=== PATIENT | male | born 1960 | race Caucasian/White ===

== ENCOUNTER 2018-12-10 08:40 | Observation (INO) | payer BC, OTHER ==
[2018-12-10 09:02] LABS: #Eosinphils 0.1 thou/uL (0.0-0.7); #Lymphocytes 1.4 thou/uL (1.20-3.40); #Monocytes 0.9 thou/uL (0.11-0.59); %Basophils 0.5 % (0.0-1.0); %Eosinophils 0.8 % (0.0-10.0); %Lymphocytes 13.3 % (21.0-51.0); %Monocytes 8.6 % (0.0-10.0); %Neutrophils 76.8 % (42.0-75.0); Hemoglobin 13.2 g/dL (14.0-18.0); Mean Corpuscular HGB CONC 33.3 g/dL (32.0-36.0); Mean Corpuscular Hemoglobin 28.1 pg (27.0-31.0); Mean Corpuscular Volume 84.4 fL (78.0-98.0); Platelet Count 242 thou/uL (130-400); RBC Distribution Width 13.2 % (11.5-14.5); Red Blood Cell (RBC) Count 4.71 mill/uL (4.70-6.10); White Blood Cell (WBC) Count 10.4 thou/uL (4.8-10.8)
[2018-12-10 09:30] LABS: ALT (SGPT) 22 U/L (8-55); AST (SGOT) 24 U/L (5-34); Albumin 4.4 g/dL (3.5-5.0); Alkaline Phosphatase 59 U/L (40-150); Anion Gap 14 mmol/L (10-20); BUN (Urea Nitrogen) 13 mg/dL (8.4-25.7); Bilirubin, Total 0.3 mg/dL (0.2-1.2); Calc. Creatinine Clearance 0 mL/min (70-130); Calcium 9.8 mg/dL (7.8-10.44); Carbon Dioxide 27 mmol/L (22-29); Chloride 100 mmol/L (98-107); Estimated GFR-MDRD 68; Glucose 159 mg/dL (70-105); Potassium 4.2 mmol/L (3.5-5.1); Protein, Total 7.4 g/dL (6.0-8.3); Sodium 137 mmol/L (136-145)
[2018-12-10] MEDS ORDERED: diphenhydrAMINE 50 MG/ML VIAL ONE (10:23)
[2018-12-10] MEDS ORDERED: Famotidine/PF 20 mg/2ml Vial ONE (10:23)
[2018-12-10] MEDS ORDERED: methylPREDNISolone Sod Succ/PF 125 MG/2 ML VIAL ONE (10:23)
[2018-12-10] MEDS ORDERED: ISOVUE-370 76%-LOCM 1 ML ONE (10:26)
[2018-12-10] MEDS ORDERED: Piperacillin/Tazobactam 4.5 GM VIAL ONE (10:37)
--- NOTE | 2018-12-10 11:43 | CT ---
CT ABDOMEN AND PELVIS WITH IV CONTRAST: Date: 12/10/18 HISTORY: Abdominal pain. FINDINGS: The lung bases are clear. No calcified gallstones are seen. There is fatty infiltration of the liver without focal mass or intrahepatic ductal dilatation. The spleen, pancreas, adrenal glands, and kidne ys are normal. No free air, free fluid, or lymphadenopathy seen in the abdomen or pelvis. The small bowel loops are not abnormally dilated. A normal appearing appendix is seen. No abnormally loculated fluid collections are noted to suggest pulmonary embolism. The abdominal aorta is normal ca liber without aneurysm. There are degenerative changes in the spine. There is thickening of the skin of the lower anterior abdominal wall with mild inflammatory change in the subcutaneous fat. This may represent cellulitis. The prostate is enlarged. IMPRESSION: No evidence of abscess formation. POS: [facility]
[2018-12-10] MEDS ORDERED: Lidocaine 1% (PF) 30 ML VIAL ONE (12:29)
[2018-12-10] MEDS ORDERED: Morphine 4 MG/ML VIAL ONE (12:29)
[2018-12-10 16:19] VITALS: BMI 38.8
[2018-12-10] MEDS ORDERED: Morphine 2 MG/ML SYRINGE SLOW IVP PRN (18:58)
[2018-12-10] MEDS ORDERED: Guaifenesin DM 100-10/5 ML UDCUP PO PRN (18:58)
[2018-12-10] MEDS ORDERED: Dextrose 5% in Water 1,000 ML IV PRN (18:58)
[2018-12-10] MEDS ORDERED: HumaLOG 300 UNITS/3 ML VIAL SC PRN (18:58)
[2018-12-10] MEDS ORDERED: Acetaminophen 325 MG TAB PO PRN (18:58)
[2018-12-10] MEDS ORDERED: Dextrose 50% Abboject 50 ML SYRINGE SLOW IVP PRN (18:58)
[2018-12-10] MEDS ORDERED: Senokot S 8.6-50 MG TAB PO PRN (18:58)
[2018-12-10] MEDS ORDERED: Bisacodyl 10 MG SUPP PR PRN (18:58)
[2018-12-10] MEDS ORDERED: Vancomycin HCl 1 GM in Premix Bag 1 BAG IVPB SCH (21:00)
[2018-12-10] MEDS: Piperacillin/Tazobactam 3.375 GM in Sodium Chloride 0.9% 100 ML IVPB SCH (21:25)
[2018-12-10] MEDS: Escitalopram Oxalate 10 mg Tablet PO SCH (21:26)
[2018-12-10] MEDS: Atorvastatin Calcium 20 MG TAB PO SCH (21:26)
[2018-12-10] MEDS: Ibuprofen 200 MG TAB PO SCH (21:26)
--- NOTE | 2018-12-10 21:33 | HP ---
REASON FOR ADMISSION: Abdominal wall abscess with cellulitis. HISTORY OF PRESENTING ILLNESS: The patient gives history of having noticed a pimple on last Thursday. This was in the right lower quadrant area. This progressively got worse and became hot to touch and the patient finally went to see his primary care physician, Dr. Dave Amanda on . He, in fact, saw his nurse practitioner, Ms. Silvestre. The patient was given a choice whether to go to the emergency room or try oral antibiotics. He was given a dose of Rocephin and was given Bactrim oral. He followed up this morning with his nurse practitioner and was told that the abscess had become big and he needs to go to the emergency room. On arrival in the ER, he has had incision and drainage done of the abscess by ER physician. Subjective fever but has not measured it at home. No complaints of any other wounds. PAST MEDICAL AND SURGICAL HISTORY: Diabetes mellitus type 2, hypertension, dyslipidemia, gout, left testicle repair, tonsillectomy, depression. CURRENT MEDICATIONS: The patient is on: 1. Metformin 500 mg p.o. daily. 2. Lexapro 10 mg p.o. daily. 3. Livalo 4 mg p.o. daily. 4. Losartan 50 mg p.o. daily. 5. Omeprazole 40 mg daily. 6. Allopurinol 100 mg p.o. daily. ALLERGIES: TO BEE POLLEN AND OMNIPAQUE. PERSONAL HISTORY: Does not abuse alcohol or drugs. No history of smoking. FAMILY HISTORY: Mother of renal failure and its complications. She was on dialysis. She at the age of 63 years. Father is living and is 82 years old. CODE STATUS: Full. Power of litigation attorney is his . REVIEW OF SYSTEMS: CONSTITUTIONAL: Negative for weight loss or gain, ability to conduct usual activities. SKIN: Negative for rash, itching. EYES: Negative for double vision, pain. ENT/MOUTH: Negative for nose bleeding, neck stiffness, pain, tenderness. CARDIOVASCULAR: Negative for palpitations, dyspnea on exertion, orthopnea. RESPIRATORY: Negative for shortness of breath, wheezing, cough, hemoptysis, fever or night sweats. GASTROINTESTINAL: Negative for poor appetite, abdominal pain, heartburn, nausea , vomiting, constipation, or diarrhea. GENITOURINARY: Negative for urgency, frequency, dysuria, nocturia. MUSCULOSKELETAL: Negative for pain, swelling. NEUROLOGIC/PSYCHIATRIC: Negative for anxiety, depression. ALLERGY/IMMUNOLOGIC: Negative for skin rash, bleeding tendency. PHYSICAL EXAMINATION: GENERAL: The patient is a 58-year-old male, who is currently not in any acute distress. VITAL SIGNS: Blood pressure 130/86, pulse 98 per minute, respiratory rate 18 per minute, temperature 98.3 degrees Fahrenheit, and saturating 96% on room air. NECK: Supple. No elevated JVD. HEENT: Eyes; extraocular muscles intact. Pupils reacting to light. Oral cavity, mucous membranes are moist. No exudates or congestion. CARDIOVASCULAR: S1, S2 heard. Regular rhythm. RESPIRATORY: Air entry, 2+ bilateral. No rales or rhonchi. ABDOMEN: Soft. There is an abscess in the right lower quadrant, which has been incised and drained by ER physician. He has induration surrounding the abscess. He also has erythema all across his lower quadrants from right lower quadrant extending down to the left quadrants up until the end of suprapubic area. Bowel sounds are heard. No rigidity or guarding. EXTREMITIES: No peripheral edema or calf tenderness. VASCULAR SYSTEM: Peripheral pulses 1+ bilateral. No ischemic ulcerations or gangrene. CENTRAL NERVOUS SYSTEM: No gross focal deficits noted. The patient is alert, awake, and oriented well. PSYCHIATRIC: The patient's mood is euthymic. No hallucinations or delusions. LABORATORY DATA: CT of the abdomen and pelvis with IV contrast done shows thickening of the skin in the lower anterior abdominal wall with mild inflammatory change in the subcutaneous fat representing cellulitis. Prostate is enlarged. No evidence of abscess formation is seen. White count of 10, H and H 13 and 39, platelet count 242, with 76% neutrophils. Electrolytes stable. BUN 13, creatinine 1.1, serum glucose 159. CLINICAL IMPRESSION AND PLAN: The patient will be under observation on med/surg floor for right lower quadrant abscess which has been incised and drained by ER physician. He was given a dose of Zosyn and vancomycin and will continue the same. Hopefully, he has been cultured in the emergency room and we will follow up on that. He will be on Motrin 400 mg three times daily along with morphine p.r.n. for pain. We will continue his allopurinol, Lipitor, Lexapro, metformin, Cozaar as before at home doses. Job ID: [id number] [facility]
[2018-12-10] MEDS: Vancomycin HCl 1.75 GM in Sodium Chloride 0.9% 500 ML IVPB SCH (23:43)
[2018-12-11] MEDS: Piperacillin/Tazobactam 3.375 GM in Sodium Chloride 0.9% 100 ML IVPB SCH ×3 (05:13→22:09)
[2018-12-11 05:43] LABS: #Lymphocytes 1.5 thou/uL (1.20-3.40); #Monocytes 0.9 thou/uL (0.11-0.59); #Neutrophils 9.4 thou/uL (1.40-6.50); %Lymphocytes 12.3 % (21.0-51.0); %Monocytes 7.8 % (0.0-10.0); %Neutrophils 79.8 % (42.0-75.0); Hemoglobin 12.5 g/dL (14.0-18.0); Mean Corpuscular Hemoglobin 28.3 pg (27.0-31.0); Mean Corpuscular Volume 85.9 fL (78.0-98.0); Platelet Count 239 thou/uL (130-400); RBC Distribution Width 13.3 % (11.5-14.5); White Blood Cell (WBC) Count 11.8 thou/uL (4.8-10.8)
[2018-12-11 06:13] LABS: ALT (SGPT) 17 U/L (8-55); AST (SGOT) 18 U/L (5-34); Albumin 3.9 g/dL (3.5-5.0); Alkaline Phosphatase 53 U/L (40-150); Anion Gap 12 mmol/L (10-20); BUN (Urea Nitrogen) 17 mg/dL (8.4-25.7); Bilirubin, Total 0.2 mg/dL (0.2-1.2); Calc. Creatinine Clearance 131 mL/min (70-130); Calcium 9.1 mg/dL (7.8-10.44); Carbon Dioxide 25 mmol/L (22-29); Chloride 103 mmol/L (98-107); Estimated GFR-MDRD 72; Globulin 2.8 g/dL (2.4-3.5); Glucose 259 mg/dL (70-105); Potassium 4.2 mmol/L (3.5-5.1); Protein, Total 6.7 g/dL (6.0-8.3); Sodium 136 mmol/L (136-145)
[2018-12-11] MEDS: Ibuprofen 200 MG TAB PO SCH ×3 (09:25→21:27)
[2018-12-11] MEDS: metFORMIN 500 MG TAB PO SCH (09:25)
[2018-12-11] MEDS: Allopurinol 100 MG TAB PO SCH (09:25)
[2018-12-11] MEDS: Losartan 25 MG TAB PO SCH (09:26)
[2018-12-11] MEDS: Vancomycin HCl 1.75 GM in Sodium Chloride 0.9% 500 ML IVPB SCH ×2 (11:26→22:51)
--- NOTE | 2018-12-11 15:33 | PDOC.HOSPP ---
- Subjective Encounter Date: 12/11/18 Encounter Time: 07:40 Subjective: Pt seen for followup re: abdominal wall cellulitis. Says he feels better. - Objective Vital Signs & Weight: Vital Signs (12 hours) Temp Pulse Resp BP Pulse Ox 12/11/18 07:57 98.6 F 78 18 128/78 97 Weight Weight 263 lb I&O: 12/10/18 12/11/18 12/12/18 06:59 06:59 06:59 Intake Total 1999 Balance 1999 Result Diagrams: 12/11/18 05:26 12/11/18 05:26 Additional Labs: Accuchecks 12/11/18 12/11/18 12/10/18 12:29 05:57 21:33 POC Glucose 132 H 220 H 238 H Labs and MARs reviewed by me. Hospitalist ROS - Review of Systems Cardiovascular: denies: chest pain, palpitations, orthopnea, paroxysmal noc. dyspnea, edema, light headedness Gastrointestinal: denies: nausea, vomitting, abdominal pain, diarrhea, constipation, melena, hematochezia Skin: reports: rash - Medication Medications: Active Medications Generic Name Dose Route Start Last Admin Trade Name Freq PRN Reason Stop Dose Admin Allopurinol 100 mg 12/11/18 09:00 12/11/18 09:25 Zyloprim PO 100 mg DAILY IAM Administration Atorvastatin Calcium 20 mg 12/10/18 21:00 12/10/18 21:26 Lipitor PO 20 mg HS IAM Administration Escitalopram Oxalate 10 mg 12/10/18 21:00 12/10/18 21:26 Lexapro PO 10 mg HS IAM Administration Piperacillin Sod/Tazobactam 100 mls @ 200 mls/hr 12/10/18 22:00 12/11/18 14: 10 Sod 3.375 gm/ Sodium Chloride IVPB 100 mls Q8HR IAM Administration Vancomycin HCl 1.75 gm/ Sodium 500 mls @ 250 mls/hr 12/10/18 23:00 12/11/18 11:26 Chloride IVPB 500 mls 1100,2300 IAM Administration Ibuprofen 400 mg 12/10/18 21:00 12/11/18 15:10 Motrin PO 400 mg TID IAM Administration Losartan Potassium 50 mg 12/11/18 09:00 12/11/18 09:26 Cozaar PO 50 mg DAILY IAM Administration Metformin HCl 500 mg 12/11/18 08:00 12/11/18 09:25 Glucophage PO 500 mg QAM-WM IAM Administration Pantoprazole Sodium 40 mg 12/11/18 09:00 12/11/18 09:26 Protonix PO 40 mg DAILY IAM Administration - Exam General - other findings: Obese Eye: anicteric sclera ENT: moist mucosa Neck: supple, symmetric Heart: RRR, no rubs Respiratory: CTAB, no wheezes Gastrointestinal: soft, non-tender, normal bowel sounds Skin - other findings: Abdominal wall cellulitis+ Neurological: no weakness Psychiatric: normal affect, normal behavior Hosp A/P (1) Abdominal wall cellulitis Code(s): L03.311 - CELLULITIS OF ABDOMINAL WALL Status: Acute (2) DM2 (diabetes mellitus, type 2) Status: Chronic (3) Depression Code(s): F32.9 - MAJOR DEPRESSIVE DISORDER, SINGLE EPISODE, UNSPECIFIED Status : Chronic (4) Dyslipidemia Code(s): E78.5 - HYPERLIPIDEMIA, UNSPECIFIED Status: Chronic (5) HTN (hypertension) Code(s): I10 - ESSENTIAL (PRIMARY) HYPERTENSION Status: Chronic (6) Gout Code(s): M10.9 - GOUT, UNSPECIFIED Status: Chronic - Plan continue antibiotics, out of bed/ambulate Continue IV vancomycin and IV Zosyn. Pt failed outpatient antibiotic therapy prior to admission. Continue acccuchecks and insulin sliding scale. Continue Livalo for dyslipidemia. Depression mild, stable, continue Lexapro. Gout stable, continue allopurinol. HTN controlled.
[2018-12-11] MEDS: Escitalopram Oxalate 10 mg Tablet PO SCH (21:27)
[2018-12-11] MEDS: Atorvastatin Calcium 20 MG TAB PO SCH (21:28)
[2018-12-12] MEDS: Piperacillin/Tazobactam 3.375 GM in Sodium Chloride 0.9% 100 ML IVPB SCH ×2 (02:59→10:50)
[2018-12-12] MEDS: metFORMIN 500 MG TAB PO SCH (08:23)
[2018-12-12] MEDS: Losartan 25 MG TAB PO SCH (08:23)
[2018-12-12] MEDS: Allopurinol 100 MG TAB PO SCH (08:23)
[2018-12-12] MEDS: Ibuprofen 200 MG TAB PO SCH (08:24)
[2018-12-12 10:54] LABS: Vancomycin, Trough 18.8 ug/mL
[2018-12-12] MEDS: Vancomycin HCl 1.75 GM in Sodium Chloride 0.9% 500 ML IVPB SCH (11:10)
[2018-12-12] MEDS ORDERED: Sulfameth/Trimethoprim DS 800-160mg TAB PO SCH ×2 (11:45→21:00)
[2018-12-12 11:46] VITALS: BP 143/86; TEMP 98.3
[2018-12-12 11:59] LABS: #Basophils 0.1 thou/uL (0.0-0.2); #Eosinphils 0.2 thou/uL (0.0-0.7); #Lymphocytes 1.1 thou/uL (1.20-3.40); #Monocytes 0.6 thou/uL (0.11-0.59); #Neutrophils 4.1 thou/uL (1.40-6.50); %Eosinophils 3.4 % (0.0-10.0); %Monocytes 9.8 % (0.0-10.0); %Neutrophils 67.8 % (42.0-75.0); Hemoglobin 12.7 g/dL (14.0-18.0); Mean Corpuscular Hemoglobin 28.5 pg (27.0-31.0); Mean Corpuscular Volume 86.3 fL (78.0-98.0); Mean Platelet Volume 8.1 fL (7.4-10.4); Platelet Count 232 thou/uL (130-400); RBC Distribution Width 13.4 % (11.5-14.5); Red Blood Cell (RBC) Count 4.45 mill/uL (4.70-6.10)
[2018-12-12 12:00] LABS: Anion Gap 13 mmol/L (10-20); BUN (Urea Nitrogen) 15 mg/dL (8.4-25.7); Calc. Creatinine Clearance 160 mL/min (70-130); Calcium 9.2 mg/dL (7.8-10.44); Carbon Dioxide 25 mmol/L (22-29); Chloride 104 mmol/L (98-107); Estimated GFR-MDRD Greater than 90; Glucose 140 mg/dL (70-105); Sodium 138 mmol/L (136-145)
--- NOTE | 2018-12-12 14:10 | DIS ---
DATE OF ADMISSION: 12/10/2018 DATE OF DISCHARGE: 12/12/2018 PRIMARY CARE PROVIDER: Dr. Dave Amanda. DISCHARGE DIAGNOSIS: Abdominal wall cellulitis. CONDITION OF PATIENT ON THE DAY OF DISCHARGE: Stable. I assessed Mr. Gonzales on the day of discharge. He denies any chest pain or shortness of breath. He reports improvement in cellulitis. Vital signs are stable. S1 and S2 are heard, regular. Lungs are clear to auscultation bilaterally. FOLLOWUP APPOINTMENTS: The patient is advised to follow up with his primary care provider in 3 to 5 days' time. DISCHARGE MEDICATIONS: In addition to his home medications as dictated by Dr. Mcginnis in history and physical note dated December 10, 2018, he is advised to continue Bactrim DS one tablet 2 times a day. He reports having the medication at home. HOSPITAL COURSE: Mr. Gonzales is a pleasant 58-year-old gentleman, who was admitted to [facility] on December 10, 2018, for abdominal wall cellulitis. He was treated with intravenous antibiotics with significant improvement in the area of cellulitis. At the time of this dictation, preliminary blood cultures are negative. He is advised to follow up with his primary care provider for final blood culture result. On the day of discharge, he has white count of 6000, hemoglobin 12.7, platelet count 232,000, normal electrolytes and normal creatinine. Many thanks for allowing me to participate in your patient's care. Please feel free to contact me with any questions or concerns. DISCHARGE DESTINATION: Home. Job ID: [id number]
== END 2018-12-12 13:33 | disposition home or self-care (01) ==
LOC: ERS 08:40 → SJJU 15:44
PROVIDERS: ADMIT Internal Medicine; ATTEND Internal Medicine
DX: L03.311 Cellulitis of abdominal wall (principal); I10 Essential (primary) hypertension; E11.9 Type 2 diabetes mellitus without complications; E78.5 Hyperlipidemia, unspecified; M10.9 Gout, unspecified; F32.9 Major depressive disorder, single episode, unspecified; Z79.84 Long term (current) use of oral hypoglycemic drugs; Z79.899 Other long term (current) drug therapy; Z88.8 Allergy status to other drugs, medicaments and biological substances; Z91.030 Bee allergy status
CPT/HCPCS: 10060; 36415; 36416; 74177; 80048; 80053; 80202; 83605; 85025; 87040; 96365; 96366; 96368; 96375; G0378; J1200; J2001; J2270; J2543; J2930; J3370; J3490; J7050; Q9966; S0028

== ENCOUNTER 2024-05-12 10:32 | Outpatient (CLI) | payer BC | END 2024-05-12 10:33 | disposition home or self-care (01) | LOC: BICRAD 10:32 | PROVIDERS: ATTEND Specialist | DX: M54.50 Low back pain, unspecified (principal); M47.816 Spondylosis without myelopathy or radiculopathy, lumbar region; M41.9 Scoliosis, unspecified | CPT/HCPCS: 72100 ==

== ENCOUNTER 2024-05-19 09:00 | Outpatient (CLI) | payer BC | END 2024-05-19 09:01 | disposition home or self-care (01) | LOC: BICMRI 09:00 | PROVIDERS: ATTEND Specialist | DX: M54.50 Low back pain, unspecified (principal); M47.816 Spondylosis without myelopathy or radiculopathy, lumbar region; M48.061 Spinal stenosis, lumbar region without neurogenic claudication; M48.07 Spinal stenosis, lumbosacral region | CPT/HCPCS: 72148 ==